=== PATIENT | female | born 1980 | race Asian ===

== ENCOUNTER 2020-10-24 07:02 | Emergency (ER) | payer OTHER ==
[~2020-10-24] VITALS: Ht 160 cm; Wt 68.0 kg
--- NOTE | 2020-10-24 07:18 | NUR ---
TO ER BED 2, BIBS C/O DIFFUSED ABDOMINAL PAIN RADIATING TO BACK SINCE 11PM, A&OX4, BREATHING EVEN AND UNLABORED
--- NOTE | 2020-10-24 07:22 | NUR ---
URINE COLLECTED AND SENT TO LAB
[2020-10-24 08:01] LABS: BASOPHILS % (AUTO) 0.3 % (0.0-2.0); EOSINOPHILS % (AUTO) 0.3 % (0.0-6.0); HEMATOCRIT 41 % (33-45); HEMOGLOBIN 13.8 g/dL (11.5-14.8); LYMPHOCYTES # (AUTO) 1.7 K/uL (0.8-4.8); LYMPHOCYTES % (AUTO) 13.7 % (20.0-44.0); MEAN CORPUSCULAR HGB CONC 34 g/dl (31.0-36.0); MEAN CORPUSCULAR VOLUME 94 fL (82-100); MONOCYTES # (AUTO) 0.6 K/uL (0.1-1.30); MONOCYTES % (AUTO) 4.6 % (2.0-12.0); NEUTROPHILS % (AUTO) 81.1 % (43.0-81.0); PLATELET COUNT (AUTO) 256 K/uL (150-450); RED BLOOD CELL COUNT(AUTO) 4.36 MIL/uL (4.0-5.2); WHITE BLOOD COUNT (AUTO) 12.4 K/uL (4.3-11.0)
[2020-10-24 08:03] LABS: BILIRUBIN,URINE NEGATIVE (NEGATIVE); COLOR,URINE YELLOW (YELLOW); LEUKOCYTE ESTERASE ,URINE NEGATIVE (NEGATIVE); NITRITE, URINE NEGATIVE (NEGATIVE); PROTEIN,URINE NEGATIVE (NEGATIVE); UGLUCOSE NEGATIVE (NEGATIVE); UROBILINOGEN,URINE 0.2 EU/dL (0.2)
[2020-10-24 08:05] LABS: BACTERIA,URINE None seen /HPF (None Seen); RBC,URINE 0-2 /HPF (0-2); SQUAMOUS EPITHELIAL CELL,UR Rare /HPF (None Seen); WBC,URINE NONE SEEN /HPF (0-3)
--- NOTE | 2020-10-24 08:14 | NUR ---
US AT BEDSIDE
[2020-10-24 08:43] LABS: ALBUMIN 3.8 g/dL (3.4-5.0); BILIRUBIN,DIRECT 0.2 mg/dL (0.0-0.2); BILIRUBIN,TOTAL 0.7 mg/dL (0.2-1.0); CALCIUM, SERUM 8.7 mg/dL (8.5-10.1); CREATININE 0.9 mg/dL (0.6-1.3); POTASSIUM 3.8 mmol/L (3.5-5.1); TOTAL PROTEIN, SERUM 7.3 g/dL (6.4-8.2)
[2020-10-24 08:56] VITALS: BP 134/75
== END 2020-10-24 08:58 | disposition home or self-care (01) ==
LOC: ER 07:08
DX: R10.84 Generalized abdominal pain (principal)
CPT/HCPCS: 36415; 76700-TC; 80048-TC; 80076-TC; 81001; 83690-TC; 84703-TC; 85025-TC